=== PATIENT | male | born 1980 | race Caucasian/White ===

== ENCOUNTER 2020-06-25 16:26 | Emergency (ER) | payer OTHER ==
[~2020-06-25] VITALS: Ht 167.6 cm; Wt 64.0 kg
[2020-06-25] MEDS ORDERED: FENTANYL CITRATE/PF 50MCG/ML 2ML VIAL IV ONE (17:15)
[2020-06-25 17:27] LABS: BASOPHILS % 1.1 % (0.0-2.0); EOSINOPHILS % 2.3 % (0.0-5.0); HEMATOCRIT. 42.1 % (42.0-52.0); HEMOGLOBIN. 14.3 g/dL (14.0-18.0); LYMPHOCYTES % 20.8 % (20.0-50.0); MEAN CORPUSCULAR HEMOGLOBIN 32.5 pg (28.0-32.0); MEAN CORPUSCULAR VOLUME 95.5 fL (80.0-94.0); MEAN PLATELET VOLUME 7.3 fl (7.4-10.4); MONOCYTES % 6.4 % (2.0-8.0); NEUTROPHILS % 69.4 % (40.0-76.0); PLATELET 184 x1000/uL (130-400); RED BLOOD CELL COUNT 4.41 mill/uL (4.7-6.1); RED CELL DISTRIBUTION WIDTH 13.8 % (11.6-14.6)
[2020-06-25 17:33] LABS: CHLORIDE 108 mEq/L (98-107)
[2020-06-25] MEDS ORDERED: OXYC-662 MT (19:35)
[2020-06-25 20:08] LABS: CLARITY URINE CLEAR (CLEAR); COLOR URINE YELLOW (YELLOW); KETONES URINE NEGATIVE (NEGATIVE); LEUKOCYTE ESTERASE URINE NEGATIVE (NEGATIVE); NITRITE URINE NEGATIVE (NEGATIVE); OCCULT BLOOD URINE NEGATIVE (NEGATIVE); PROTEIN URINE NEGATIVE (NEGATIVE); SPECIFIC GRAVITY URINE 1.009 (1.005-1.030); UROBILINOGEN URINE 0.2 E.U./dL (0.2-1.0)
[2020-06-25 21:09] VITALS: BP 125/79
== END 2020-06-25 21:15 | disposition home or self-care (01) ==
LOC: ER 16:26
DX: S42.012A Anterior displaced fracture of sternal end of left clavicle, initial encounter for closed fracture (principal); V18.0XXA Pedal cycle driver injured in noncollision transport accident in nontraffic accident, initial encounter; Y93.89 Activity, other specified; Y92.488 Other paved roadways as the place of occurrence of the external cause
CPT/HCPCS: 36415; 73030; 80048; 81003; 85025; 96374; 99285; J3010; A4565

== ENCOUNTER 2022-09-21 03:54 | Inpatient (IN) | payer MEDICAID, OTHER ==
[~2022-09-21] VITALS: Ht 175.3 cm; Wt 70.4 kg
[~2022-09-21 03:54] MED LIST: OXYC-662 MT
[2022-09-21] MEDS ORDERED: IPRATROPIUM BROMIDE (0.02%) 0.5MG/2.5ML NEB HHN NR (04:40)
[2022-09-21] MEDS ORDERED: METHYLPREDNISOLONE SOD SUCC 125MG/2ML (ACT-O-VIAL) IV NR (04:40)
[2022-09-21] MEDS ORDERED: MAGNESIUM 2 G PREMIX 50 ML IV NR (04:45)
[2022-09-21 05:21] VITALS: PULSE 81; RESP 18; O2SAT 98
[2022-09-21] MEDS: ALBUTEROL (0.083%) 2.5MG/3ML NEB HHN SCH ×2 (05:30→05:42)
[2022-09-21 05:48] LABS: BASOPHILS % 1.1 % (0.0-2.0); EOSINOPHILS % 6.8 % (0.0-5.0); HEMOGLOBIN. 14.9 g/dL (14.0-18.0); LYMPHOCYTES % 18.9 % (20.0-50.0); MEAN CORPUSCULAR HEMOGLOBIN 32.2 pg (28.0-32.0); MEAN CORPUSCULAR VOLUME 94.8 fL (80.0-94.0); MEAN PLATELET VOLUME 7.7 fl (7.4-10.4); MONOCYTES % 8.7 % (2.0-8.0); NEUTROPHILS % 64.5 % (40.0-76.0); PLATELET 116 x1000/uL (130-400); RED BLOOD CELL COUNT 4.64 mill/uL (4.7-6.1); RED CELL DISTRIBUTION WIDTH 13.8 % (11.6-14.6)
[2022-09-21 05:54] LABS: CHLORIDE 107 mEq/L (98-107)
[2022-09-21] MEDS ORDERED: IPRATROPIUM/ALBUTEROL 0.5-3(2.5)MG/3ML NEB HHN PRN (08:45)
[2022-09-21] MEDS: THIAMINE HCL 100MG TABLET PO SCH (09:25)
[2022-09-21] MEDS: FOLIC ACID 1MG TABLET PO SCH (09:25)
[2022-09-21] MEDS: MULTIVITAMINS,THER W-MINERALS TABLET PO SCH (09:25)
[2022-09-21] MEDS: LORATADINE 10MG TABLET PO SCH (09:26)
[2022-09-21] MEDS: GUAIFENESIN 600MG ER TABLET PO SCH ×2 (09:26→21:34)
[2022-09-21] MEDS: METHYLPREDNISOLONE SOD SUCC 40MG VIAL IV SCH ×2 (09:27→17:00)
[2022-09-21] MEDS: FAMOTIDINE 20MG/2ML VIAL IV SCH ×2 (09:27→21:00)
[2022-09-21 14:36] VITALS: BP 161/113; PULSE 87; RESP 18; TEMP 97.8
[2022-09-21 15:02] VITALS: BP 147/97; PULSE 95; RESP 18; TEMP 97
[2022-09-21 16:00] VITALS: BP 149/95; PULSE 78; RESP 18; TEMP 97.7
[2022-09-21] MEDS ORDERED: MONTELUKAST SODIUM 10MG TABLET PO SCH (17:00)
[2022-09-21 20:00] VITALS: BP 141/97; PULSE 76; RESP 18; TEMP 98.7
[2022-09-21] MEDS ORDERED: ZOLPIDEM TARTRATE 5MG TABLET PO PRN (21:30)
[2022-09-21 21:50] VITALS: PULSE 92; RESP 18
[2022-09-21] MEDS: IPRATROPIUM/ALBUTEROL 0.5-3(2.5)MG/3ML NEB HHN SCH (21:50)
[2022-09-22] VITALS (9 sets, daily range): BP systolic 129–146; BP diastolic 75–96; PULSE 73–87; RESP 16–20; TEMP 97.3–98.6; O2SAT 95–99
[2022-09-22] MEDS: METHYLPREDNISOLONE SOD SUCC 40MG VIAL IV SCH ×2 (01:00→09:32)
[2022-09-22] MEDS: IPRATROPIUM/ALBUTEROL 0.5-3(2.5)MG/3ML NEB HHN SCH ×3 (01:38→13:59)
[2022-09-22] MEDS: FOLIC ACID 1MG TABLET PO SCH (09:09)
[2022-09-22] MEDS: GUAIFENESIN 600MG ER TABLET PO SCH (09:10)
[2022-09-22] MEDS: THIAMINE HCL 100MG TABLET PO SCH (09:10)
[2022-09-22] MEDS: MULTIVITAMINS,THER W-MINERALS TABLET PO SCH (09:10)
[2022-09-22] MEDS: AMLODIPINE 5MG TABLET PO SCH ×2 (09:10→09:50)
[2022-09-22] MEDS: LORATADINE 10MG TABLET PO SCH (09:10)
[2022-09-22] MEDS: FAMOTIDINE 20MG/2ML VIAL IV SCH (09:12)
[2022-09-22] MEDS ORDERED: ALBU18HF2 IH (12:11)
[2022-09-22] MEDS ORDERED: P20 MT (12:11)
[2022-09-22] MEDS ORDERED: AMLO5TAB88 PO (12:11)
[2022-09-22] MEDS ORDERED: FLUT1DIS3 INH (12:11)
[2022-09-22 15:09] LABS: *AMPHETAMINES SCREEN URINE PRESUMTIVE POSITIVE (NEGATIVE); *BARBITURATES SCREEN URINE NEGATIVE (NEGATIVE); *BENZODIAZEPINES SCREEN URINE NEGATIVE (NEGATIVE); *COCAINE SCREEN URINE NEGATIVE (NEGATIVE); CANNABINOID URINE SCREEN NEGATIVE (NEGATIVE); METHADONE URINE SCREEN NEGATIVE (NEGATIVE); OPIATES URINE SCREEN NEGATIVE (NEGATIVE); PHENCYCLIDINE URINE SCREEN NEGATIVE (NEGATIVE)
[2022-09-23] MEDS ORDERED: PREDNISONE 20MG TABLET PO SCH (09:00)
== END 2022-09-22 14:55 | disposition home or self-care (01) | DRG 133 ==
LOC: ER 03:59 → 8WST 05:43
PROVIDERS: ADMIT Internal Medicine; ATTEND Internal Medicine
DX: J96.01 Acute respiratory failure with hypoxia (principal); J45.902 Unspecified asthma with status asthmaticus; D72.10 Eosinophilia, unspecified; D69.6 Thrombocytopenia, unspecified; J44.1 Chronic obstructive pulmonary disease with (acute) exacerbation; F10.10 Alcohol abuse, uncomplicated; D72.819 Decreased white blood cell count, unspecified; F17.210 Nicotine dependence, cigarettes, uncomplicated; I10 Essential (primary) hypertension; Y90.9 Presence of alcohol in blood, level not specified; F12.90 Cannabis use, unspecified, uncomplicated; Z79.891 Long term (current) use of opiate analgesic; Z79.899 Other long term (current) drug therapy
CPT/HCPCS: 36415; 71045; 80053; 80305; 83605; 83880; 85025; 85379; 94640; 99291; J2920; J2930; J3475; J3490

== ENCOUNTER 2022-12-07 09:11 | Inpatient (IN) | payer MEDICAID, OTHER ==
[~2022-12-07] VITALS: Ht 167.6 cm; Wt 78.9 kg
[~2022-12-07 09:11] MED LIST changes: +ALBU18HF2 IH; +AMLO5TAB88 PO; +AMOX1TAB16 MT; +FLUT1DIS3 INH; -OXYC-662 MT; +SULF1TAB48 MT
[2022-12-07] MEDS ORDERED: AZITHROMYCIN 500MG/250ML 250 ML IV ONE (09:30)
[2022-12-07] MEDS ORDERED: CLINDAMYCIN 600MG PREMIX 50 ML IV NR (10:00)
[2022-12-07 10:09] LABS: BASOPHILS % 0.9 % (0.0-2.0); EOSINOPHILS % 6.8 % (0.0-5.0); HEMATOCRIT. 34.9 % (42.0-52.0); HEMOGLOBIN. 11.8 g/dL (14.0-18.0); MEAN CORPUSCULAR HEMOGLOBIN 30.8 pg (28.0-32.0); MEAN CORPUSCULAR HGB CONC 33.9 g/dL (31.0-37.0); MEAN CORPUSCULAR VOLUME 90.8 fL (80.0-94.0); MEAN PLATELET VOLUME 6.6 fl (7.4-10.4); MONOCYTES % 7.8 % (2.0-8.0); NEUTROPHILS % 65.5 % (40.0-76.0); PLATELET 480 x1000/uL (130-400); RED BLOOD CELL COUNT 3.85 mill/uL (4.7-6.1); RED CELL DISTRIBUTION WIDTH 16.1 % (11.6-14.6); WHITE BLOOD COUNT 4.1 x1000/uL (4.5-11.0)
[2022-12-07 10:11] LABS: CHLORIDE 106 mEq/L (98-107); INDEX HEMOLYSI 1 (1-3); INDEX ICTERIC 1 (1-4); INDEX LIPEMIC 1 (1-3); POTASSIUM 3.7 mEq/L (3.5-5.1); SODIUM 134 mEq/L (136-145)
[2022-12-07 10:15] LABS: PROTHROMBIN TIME 10.6 sec (9.6-11.0)
[2022-12-07 10:19] LABS: ALANINE AMINOTRANSFERASE 32 IU/L (13-61); ALBUMIN 3.3 g/dL (3.4-5.0); ASPARTATE AMINOTRANSFERASE 45 IU/L (15-37); BILIRUBIN TOTAL 0.2 mg/dL (0.1-1.0); CARBON DIOXIDE 24 mEq/L (21-32); CREATININE 0.9 mg/dL (0.6-1.3); GLUCOSE 92 mg/dL (70-105); PROTEIN TOTAL 8.7 g/dL (6.0-8.3); UREA NITROGEN BLOOD 9 mg/dL (7-21)
[2022-12-07] MEDS: METHYLPREDNISOLONE SOD SUCC 40MG/ML (ACT-O-VIAL) IV SCH ×2 (10:54→21:37)
[2022-12-07 11:43] VITALS: PULSE 82; RESP 20
[2022-12-07] MEDS: IPRATROPIUM/ALBUTEROL 0.5-3(2.5)MG/3ML NEB HHN SCH ×3 (11:43→21:14)
[2022-12-07 16:00] VITALS: BP 155/114; PULSE 93; RESP 20; TEMP 98.2
[2022-12-07 16:25] VITALS: PULSE 86; RESP 18; O2SAT 97
[2022-12-07] MEDS ORDERED: ACETAMINOPHEN 325MG TABLET PO PRN (17:15)
[2022-12-07] MEDS ORDERED: ONDANSETRON HCL 4MG TABLET PO PRN (17:15)
[2022-12-07] MEDS ORDERED: ONDANSETRON HCL 4MG/2ML INJ IV PRN (17:30)
[2022-12-07] MEDS: AMLODIPINE 10MG TABLET PO SCH (18:28)
[2022-12-07 20:00] VITALS: BP 131/93; PULSE 96; RESP 18; TEMP 99.3
[2022-12-07] MEDS ORDERED: CEFTRIAXONE 1,000 MG in DEXTROSE 5% WATER 50 ML IV SCH (20:00)
[2022-12-07 20:35] VITALS: BP 124/67; PULSE 97; RESP 18; TEMP 97
[2022-12-07] MEDS ORDERED: VANCOMYCIN 1.25GM PMX (XELLIA) 250 ML IV NR (21:00)
[2022-12-07 21:14] VITALS: PULSE 88; RESP 16
[2022-12-08] VITALS (9 sets, daily range): BP systolic 131–140; BP diastolic 86–97; PULSE 76–101; RESP 16–18; TEMP 96.6–101; O2SAT 98
[2022-12-08] MEDS: IPRATROPIUM/ALBUTEROL 0.5-3(2.5)MG/3ML NEB HHN SCH ×4 (01:13→21:04)
[2022-12-08] MEDS: VANCOMYCIN 1G PREMIX 200 ML IV SCH ×2 (05:51→16:48)
[2022-12-08] MEDS: METHYLPREDNISOLONE SOD SUCC 40MG/ML (ACT-O-VIAL) IV SCH ×2 (05:51→16:48)
[2022-12-08] MEDS: AMLODIPINE 10MG TABLET PO SCH (10:50)
[2022-12-08] MEDS ORDERED: AMOX1TAB16 MT (14:49)
[2022-12-08] MEDS ORDERED: SULF1TAB48 MT (14:49)
== END 2022-12-08 22:00 | disposition left against medical advice (07) | DRG 383 ==
LOC: ER 09:11 → 6WST 11:44 → EDBEDREQSVC 11:45 → EDBEDREQTM 11:45 → EDBEDREQ 11:45
PROVIDERS: ADMIT Internal Medicine; ATTEND Internal Medicine
DX: L03.114 Cellulitis of left upper limb (principal); J96.00 Acute respiratory failure, unspecified whether with hypoxia or hypercapnia; E87.1 Hypo-osmolality and hyponatremia; J45.901 Unspecified asthma with (acute) exacerbation; D64.9 Anemia, unspecified; S51.002A Unspecified open wound of left elbow, initial encounter; D72.819 Decreased white blood cell count, unspecified; Z20.822 Contact with and (suspected) exposure to COVID-19; Z53.29 Procedure and treatment not carried out because of patient's decision for other reasons; F15.90 Other stimulant use, unspecified, uncomplicated; F17.210 Nicotine dependence, cigarettes, uncomplicated; X58.XXXA Exposure to other specified factors, initial encounter; F12.10 Cannabis abuse, uncomplicated; Z79.899 Other long term (current) drug therapy; Y93.89 Activity, other specified; Y92.89 Other specified places as the place of occurrence of the external cause; Y99.8 Other external cause status; Z71.51 Drug abuse counseling and surveillance of drug abuser
CPT/HCPCS: 36415; 71045; 80053; 84145; 85025; 87426; 93005; 94640; 99285; J0696; J2920; J3370; J3490; J7060; A4315